=== PATIENT | female | born 1985 | race Caucasian/White ===

== ENCOUNTER 2022-01-03 14:57 | Emergency (ER) | payer MEDICAID ==
[~2022-01-03] VITALS: Ht 157.5 cm; Wt 70.8 kg
[2022-01-03 15:25] VITALS: BP 109/77
--- NOTE | 2022-01-03 19:38 | NUR ---
pt seen leaving the er by staff. informed
== END 2022-01-03 20:07 | disposition left against medical advice (07) ==
LOC: ER 14:58
DX: M54.9 Dorsalgia, unspecified (principal); Z53.21 Procedure and treatment not carried out due to patient leaving prior to being seen by health care provider

== ENCOUNTER 2022-06-11 20:03 | Emergency (ER) | payer MEDICAID ==
[~2022-06-11] VITALS: Ht 157.5 cm; Wt 72.7 kg
[2022-06-11 20:34] VITALS: BP 133/89
[2022-06-11 21:33] LABS: URINE HCG NEGATIVE (NEG)
[2022-06-11 21:34] LABS: CLARITY,URINE SLIGHTLY CLOUDY (Clear); COLOR,URINE YELLOW (Yellow); GLUCOSE, URINE NEGATIVE (Neg); KETONES,URINE NEGATIVE (Neg); LEUKOCYTE ESTERASE ,URINE NEGATIVE (Neg); NITRITES, URINE NEGATIVE (Neg); OCCULT BLOOD,URINE LARGE (Neg); PROTEIN,URINE 100 mg/dl (Neg); UROBILINOGEN,URINE 0.2 E.U/dL (0.2-1.0)
[2022-06-11 21:36] LABS: UA COLLECTION TYPE CLN CATCH MIDSTREAM
[2022-06-11 21:49] LABS: RBC,URINE 20-50 /HPF (0-2)
[2022-06-11 21:50] LABS: BACTERIA,URINE 2+ /HPF (Neg); HYALINE CASTS 0-3 /LPF (NEGATIVE); MUCUS STRANDS FEW /LPF (Neg); SQUAMOUS EPITHELIAL CELL,UR FEW /LPF (FEW)
[2022-06-11] MEDS ORDERED: phenazopyridine 100mg tablet PO ONE (23:05)
[2022-06-11] MEDS ORDERED: CefTRIAXone 1000mg IM Kit (w/lidocaine diluent) IM ONE (23:05)
[2022-06-11] MEDS ORDERED: CIPR-202 PO (23:06)
[2022-06-11] MEDS ORDERED: PHEN-716 PO (23:06)
== END 2022-06-11 23:57 | disposition home or self-care (01) ==
LOC: ER 20:04
DX: N39.0 Urinary tract infection, site not specified (principal); J45.909 Unspecified asthma, uncomplicated; G89.29 Other chronic pain; M54.50 Low back pain, unspecified; F17.200 Nicotine dependence, unspecified, uncomplicated; Z88.5 Allergy status to narcotic agent; Z98.890 Other specified postprocedural states; Z90.710 Acquired absence of both cervix and uterus
CPT/HCPCS: 81001; 81025; 87088; 96372; 99283; J0696

== ENCOUNTER 2023-06-23 09:53 | Emergency (ER) | payer MEDICAID ==
[~2023-06-23] VITALS: Ht 157.5 cm; Wt 69.0 kg
[~2023-06-23 09:53] MED LIST: PHEN-716 PO
[2023-06-23] MEDS: normal saline 1000ML IV soln IV ONE (16:05)
[2023-06-23] MEDS: oxyCODONE/APAP 5-325mg tablet PO ONE (16:57)
[2023-06-23 17:43] VITALS: BP 129/89; PULSE 78; RESP 15; TEMP 98.2; O2SAT 98
== END 2023-06-23 18:39 | disposition home or self-care (01) ==
LOC: ER 09:53
DX: G97.1 Other reaction to spinal and lumbar puncture (principal); J45.909 Unspecified asthma, uncomplicated; G89.29 Other chronic pain; M54.9 Dorsalgia, unspecified; Z88.5 Allergy status to narcotic agent; Z90.49 Acquired absence of other specified parts of digestive tract
CPT/HCPCS: 96360; 99284; J7030